=== PATIENT | male | born 1960 | race Caucasian/White ===

== ENCOUNTER 2018-10-21 08:28 | Day surgery (SDC) | payer BC ==
[~2018-10-21] VITALS: Ht 167.6 cm; Wt 90.3 kg
[2018-10-21 09:15] VITALS: Ht 167.6 cm; Wt 90.3 kg
[2018-10-21] MEDS ORDERED: ASPIRIN (09:20)
[2018-10-21] MEDS ORDERED: COZAAR (09:20)
[2018-10-21] MEDS ORDERED: ZOCOR (09:20)
[2018-10-21] MEDS ORDERED: LIDOCAINE 100 MG SYRINGE ONE (09:43)
[2018-10-21] MEDS ORDERED: PROPOFOL 40 ML ONE (09:43)
[2018-10-21 09:44] VITALS: BP 164/83; PULSE 77; RESP 14
[2018-10-21] MEDS ORDERED: FENTAnyl 50 MCG/ML VIAL ONE (09:44)
--- NOTE | 2018-10-21 09:52 | PREAC ---
Date/Time of Note Date/Time of Note DATE: 10/21/18 TIME: 09:51 Anesthesia Eval and Record Evaluation Time Pre-Procedure Interview DATE: 10/21/18 TIME: 09:51 Age 58 Sex male NPO: 8 hrs Preoperative diagnosis abdominal pain, change in bowel habits Planned procedure egd, colon Past Medical History Past Medical History: Includes Cardio: HTN, Dyslipidemia Surgery & Anesthesia Issues No known issue Meds Anticoagulation: No Beta Roland within 24 hr: No Reason Beta Roland not given: Pt. not on B-Roalnd Reported Medications [Aspirin] No Conflict Check 10/21/18 [Zocor] No Conflict Check 10/21/18 [Cozaar] No Conflict Check 10/21/18 Meds reviewed: Yes Allergies Coded Allergies: No Known Allergy (Unverified , 10/21/18) Allergies Reviewed: Yes Labs/Studies Labs Reviewed: Reviewed by anesthesiologist test: N/A Pre-procedure Exam Last vitals Vital Signs Date Temp Pulse Resp B/P (MAP) Pulse Ox O2 O2 Flow FiO2 Time Delivery Rate 10/21/18 98.7 77 14 164/83 97 Room Air 09:44 (110) Airway: Adequate mouth opening, Adequate thyromental dist Mallampati: Mallampati II Teeth: Normal Lung: Normal Heart: Normal ASA Physical Status ASA physical status: 2 Emergency: None Planned Anesthetic General/MAC: MAC Planned Pain Management Parenteral pain med Pre-operative Attestations Prior to commencing anesthesia and surgery, the patient was re-evaluated, there was verification of: *The patient's identity *The results of appropriate recent lab work and preoperative vital signs *The above evaluation not changing prior to induction *Anesthetic plan, risk benefits, alternative and complications discussed with patient/family; questions answered; patient/family understands, accepts and wishes to proceed. Waqar Ascencio M.D. Oct 21, 2018 09:52
[2018-10-21] MEDS ORDERED: IPRATROPIUM (NEB) 0.5 MG/2.5 ML AMP HHN PRN (10:00)
[2018-10-21] MEDS ORDERED: OXYCODONE/ACETAMINOPHEN (5/325) TAB PO PRN ×2 (10:00)
[2018-10-21] MEDS ORDERED: hydrALAzine 20 MG INJ IV PRN (10:00)
[2018-10-21] MEDS ORDERED: ALBUTEROL 0.083% (NEB) 2.5 MG/3 ML AMP HHN PRN (10:00)
[2018-10-21] MEDS ORDERED: LABETALOL HCL 20MG INJ IV PRN (10:00)
[2018-10-21] MEDS ORDERED: TRIMETHOBENZAMIDE 100 MG/ML VIAL IM PRN (10:00)
[2018-10-21] MEDS ORDERED: MEPERIDINE 25 MG INJ IV PRN (10:00)
[2018-10-21] MEDS ORDERED: MIDAZOLAM 1 MG/ML 2 ML INJ IV PRN (10:00)
[2018-10-21] MEDS ORDERED: FENTAnyl 50 MCG/ML VIAL IV PRN ×3 (10:00)
[2018-10-21] MEDS ORDERED: EPHEDrine SULFATE 50 MG/5 ML SYG IV PRN (10:00)
[2018-10-21] MEDS ORDERED: DIPHENHYDRAMINE 50 MG INJ IV PRN (10:00)
[2018-10-21] MEDS ORDERED: HYDROmorphONE 1 MG/5 ML IV SYRINGE IV PRN ×3 (10:00)
[2018-10-21] MEDS ORDERED: ONDANSETRON 4 MG INJ IV PRN (10:00)
--- NOTE | 2018-10-21 10:08 | PAC ---
Date/Time of Note Date/Time of Note DATE: 10/21/18 TIME: 10:08 Post-Anesthesia Notes Post-Anesthesia Note Last documented vital signs Vital Signs Date Temp Pulse Resp B/P (MAP) Pulse Ox O2 O2 Flow FiO2 Time Delivery Rate 10/21/18 98.7 77 14 164/83 97 Room Air 10:08 (110) Activity: WNL Respiratory function: WNL Cardiovascular function: WNL Mental status: Baseline Pain reasonably controlled: Yes Hydration appropriate: Yes Nausea/Vomiting absent: Yes Waqar Ascencio M.D. Oct 21, 2018 10:08
[2018-10-21 10:41] VITALS: BP 144/81; RESP 20
== END 2018-10-21 10:57 | disposition home or self-care (01) ==
LOC: GIL 08:28
PROVIDERS: ATTEND Internal Medicine Gastroenterology
DX: K29.30 Chronic superficial gastritis without bleeding (principal); K64.8 Other hemorrhoids; K21.9 Gastro-esophageal reflux disease without esophagitis; I10 Essential (primary) hypertension; E78.5 Hyperlipidemia, unspecified
CPT/HCPCS: 43239; 45378; 88305; 88312; J2001; J3010; Z7610